=== PATIENT | male | born 1990 | race Caucasian/White ===

== ENCOUNTER 2018-12-07 10:42 | Emergency (ER) | payer BC ==
[~2018-12-07] VITALS: Ht 188 cm; Wt 89.4 kg
[2018-12-07] MEDS ORDERED: ONDANSETRON ODT8 MG PO (14:09)
[2018-12-07] MEDS ORDERED: PROTONIX40 MG PO (14:09)
== END 2018-12-07 14:45 | disposition home or self-care (01) ==
LOC: ED 10:42
DX: K29.70 Gastritis, unspecified, without bleeding (principal); K21.9 Gastro-esophageal reflux disease without esophagitis; F17.200 Nicotine dependence, unspecified, uncomplicated
CPT/HCPCS: 74177; 80053; 81001; 82150; 83690; 85025; 87502; 96365; 96375; 99284-25; 99406; J2405; J3480; J7030; J7060; Q9967